=== PATIENT | female | born 1960 | race Caucasian/White ===

== ENCOUNTER 2018-02-14 10:25 | Emergency (ER) | payer OTHER ==
[2018-02-14] MEDS: ONDANSETRON (ODT) 4 MG TAB ODT (11:00)
[2018-02-14] MEDS: HYDROCODONE/APAP (5/325) TAB PO (11:00)
== END 2018-02-14 12:51 | disposition home or self-care (01) ==
LOC: FTE 10:25
DX: S09.90XA Unspecified injury of head, initial encounter (principal); S79.912A Unspecified injury of left hip, initial encounter; S89.91XA Unspecified injury of right lower leg, initial encounter; I10 Essential (primary) hypertension; W18.39XA Other fall on same level, initial encounter; Y92.89 Other specified places as the place of occurrence of the external cause
CPT/HCPCS: 73510; 73562; 99284-25